=== PATIENT | female | born 1990 | race Caucasian/White ===

== ENCOUNTER 2022-03-03 07:55 | Emergency (ER) | payer OTHER, SELFPAY ==
[2022-03-03 08:07] VITALS: BP 128/85; PULSE 71; RESP 18; TEMP 36.4; O2SAT 100; BMI 39.9
--- NOTE | 2022-03-03 08:30 | ED_ITS ---
HPI - General Adult General Date Seen: 03/03/22 Chief complaint: Unspecified Complaint, Adult Stated complaint: Took Delta 8 Gummy/not feeling well Time Seen by Provider: 03/03/22 08:17 Source: patient History of Present Illness HPI narrative: Patient is a 31-year-old woman who used G8 THC product last night for the 1st time because she was feeling anxious at work. It is supposed to create a calming effect. She used it in the evening and then again at 4:00 a.m.. She said that she felt jittery and out of it, she was having trouble focusing, and she was worried she was having a seizure. She did not have any loss of consciousness or actual seizure activity, she just says that she would do things like poultry picker a pen and then put it back down and then pick it up again, just could not seem to keep track of what she was doing. She became concerned that it might be laced with something else, because this is not the effect that it is supposed to have. Related Data Home Medications Medication Instructions Recorded Confirmed citalopram 40 mg tablet mg 03/03/22 propranolol 120 mg capsule,24 mg PO 03/03/22 hr,extended release Allergies Allergy/AdvReac Type Severity Reaction Status Date / Time amoxicillin Allergy Verified 03/03/22 08:07 Review of Systems Status of ROS: Reports: 6 or more systems reviewed and unremarkable except as noted in History and below [facility] Social History Smoking Status: Unknown if ever smoked Non-prescribed substance use: marijuana (any form) Exam Narrative: Exam Narrative: Vital signs as noted above. In general, an alert, well-appearing patient. Head: Normocephalic, atraumatic. Eyes: Pupils are equal reactive. Extraocular movements are full. Conjunctivae are normal. ENT: Mucous membranes are moist. Throat is normal. Neck: Supple without lymphadenopathy. Heart: Regular rate and rhythm. No murmur or rub. Lungs: Clear bilaterally. No increased work of breathing, crackles or wheezes. Abdomen: Soft and nontender. No organomegaly. Extremities: Well perfused. No edema. No calf tenderness. Pulses intact. Neurologic: Patient is alert and oriented to person and place. Speech is fluent. Face is symmetric. Moves all extremities equally. Affect: Normal. Skin: Warm and dry. Well perfused. Const: Vital Signs, click to edit/add: Vital Signs - 24 hr 03/03/22 08:07 Temperature 97.6 F Pulse Rate [Right Pulse Oximeter] 71 Respiratory Rate 18 Blood Pressure [Ri ght Upper Arm] 128/85 Pulse Oximetry 100 Course Course Hospital Course: Patient's vital signs are normal, her neurologic exam is normal. I offered to do a urinalysis if she want to screen for other possible drug contaminants, but she declined. We talked about the fact that overall I think she is just not tolerating this product well, and that sometimes the effects of a product like this can be different than what the predicted effects are. I do not see evidence here of a significant intoxication from an opioid, benzo, or other street drug. She is not showing evidence of over-sedation or significant toxidrome. I think it is reasonable for her to home and get some rest, expect that this will wear off as she metabolized as this. She does not plan to use it again. Certainly if she has worsening symptoms would want her to return as that would not be what we would expect. Vital Signs Vital signs: Initial Vital Signs Temperature 97.6 F 03/03/22 08:07 Temperature Source Temporal Artery Scan 03/03/22 08:07 Pulse Rate 71 03/03/22 08:07 Respiratory Rate 18 03/03/22 08:07 Blood Pressure 128/85 03/03/22 08:07 Blood Pressure Mean 99 03/03/22 08:07 Pulse Oximetry 100 03/03/22 08:07 Oxygen Delivery Method 03/03/22 08:07 Vital Signs Temperature 97.6 F 03/03/22 08:07 Pulse Rate 71 03/03/22 08:07 Respiratory Rate 18 03/03/22 08:07 Blood Pressure 128/85 03/03/22 08:07 Pulse Oximetry 100 03/03/22 08:07 Temperature 97.6 F 03/03/22 08:07 Pulse Rate 71 03/03/22 08:07 Respiratory Rate 18 03/03/22 08:07 Blood Pressure 128/85 03/03/22 08:07 Pulse Oximetry 100 03/03/22 08:07 Discharge Plan Discharge Clinical Impression: Drug intolerance Patient Disposition: Home, Self-Care Condition: Stable Instructions: Adverse Drug Reaction (ED) Additional Instructions: Rest today, anticipate improvement as your system metabolizes the THC. If for some reason you feel worse instead of better, return for re-evaluation Prescriptions: No Action citalopram 40 mg tablet 0RF propranolol 120 mg capsule,extended release 24 hr PO 0RF Stand Alone Forms: [employer] [employer] Info Instructions
== END 2022-03-03 08:00 | disposition home or self-care (01) ==
PROVIDERS: Emergency Provider Emergency Medicine
DX: R41.840 Attention and concentration deficit (principal); T40.715A Adverse effect of cannabis, initial encounter
CPT/HCPCS: 99283